=== PATIENT | female | born 1980 | race Hispanic/Latino ===

== ENCOUNTER 2019-09-09 14:12 | Outpatient (CLI) | payer BC ==
--- NOTE | 2019-09-09 15:19 | CT ---
CT abdomen and pelvis with IV and oral contrast HISTORY: Abdominal pain. COMPARISON: 12/18/2013. FINDINGS: The lung bases are clear. Gallbladder absent. Solid organs are intact. No hydronephrosis. No evidence of bowel obstruction or inflammation. Appendix is unremarkable. Fat protruding into an umbilical hernia has decreased significantly since the prior study. No free air or free fluid. Urinary bladder is decompressed. Intrauterine contraceptive device in place. IMPRESSION : Umbilical hernia significantly smaller than on the previous exam. Possibly interval surgical repair. No acute abnormalities are demonstrated.
== END 2019-09-09 14:13 | disposition home or self-care (01) ==
LOC: SCSCT 14:12
PROVIDERS: ATTEND Student in an Organized Health Care Education/Training Program
DX: R10.9 Unspecified abdominal pain (principal); K42.9 Umbilical hernia without obstruction or gangrene
CPT/HCPCS: 74177

== ENCOUNTER 2019-11-22 05:33 | Day surgery (SDC) | payer BC ==
[2019-11-16 12:35] VITALS: BMI 33.7
[2019-11-22] MEDS ORDERED: Fentanyl 250 MCG/5 ML VIAL ONE (06:12)
[2019-11-22] MEDS ORDERED: SUGAMMADEX SODIUM 500 MG/5 ML VIAL ONE (06:12)
[2019-11-22] MEDS ORDERED: Famotidine/PF 20 mg/2ml Vial ONE ×2 (06:12→06:15)
[2019-11-22] MEDS ORDERED: CeleCOXIB 100 MG CAP ONE (06:15)
[2019-11-22] MEDS ORDERED: Gabapentin 300 MG CAP ONE (06:15)
[2019-11-22 06:30] LABS: #Basophils 0.1 thou/uL (0.0-0.2); #Eosinphils 0.1 thou/uL (0.0-0.7); #Lymphocytes 2.6 thou/uL (1.20-3.40); #Monocytes 0.6 thou/uL (0.11-0.59); #Neutrophils 4.9 thou/uL (1.40-6.50); %Basophils 0.6 % (0.0-1.0); %Eosinophils 1.3 % (0.0-10.0); %Lymphocytes 31.4 % (21.0-51.0); %Neutrophils 59.7 % (42.0-75.0); Hemoglobin 13.3 g/dL (12.0-16.0); Mean Corpuscular HGB CONC 32.4 g/dL (32.0-36.0); Mean Corpuscular Hemoglobin 30.3 pg (27.0-31.0); Mean Corpuscular Volume 93.4 fL (78.0-98.0); Mean Platelet Volume 9.4 fL (7.4-10.4); Platelet Count 205 thou/uL (130-400); RBC Distribution Width 11.8 % (11.5-14.5); Red Blood Cell (RBC) Count 4.39 mill/uL (4.20-5.40); White Blood Cell (WBC) Count 8.3 thou/uL (4.8-10.8)
[2019-11-22 06:34] LABS: BHCG - Serum Negative (NEGATIVE); Pregs Control Background? CLEAR/WHITE (CLR/WHITE); Pregs Control Bar Appear? YES (CONTROL BAR)
[2019-11-22] MEDS ORDERED: Lidocaine 1% w/Epinephrine 1:100K 20 ML VIAL ONE (06:37)
[2019-11-22] MEDS ORDERED: Bupivacaine PF 0.5% 30 ML VIAL ONE (06:37)
[2019-11-22 07:14] LABS: Anion Gap 11 mmol/L (10-20); BUN (Urea Nitrogen) 7 mg/dL (7.0-18.7); Calc. Creatinine Clearance 188 mL/min (70-130); Calcium 8.4 mg/dL (7.8-10.44); Carbon Dioxide 22 mmol/L (22-29); Chloride 109 mmol/L (98-107); Estimated GFR-MDRD Greater than 90; Glucose 90 mg/dL (70-105); Potassium 3.6 mmol/L (3.5-5.1); Sodium 138 mmol/L (136-145)
[2019-11-22] MEDS ORDERED: Midazolam HCl 2 mg/2 ml Vial ONE (07:22)
[2019-11-22] MEDS ORDERED: Meperidine HCl/PF 25 MG/ML VIAL SLOW IVP PRN (10:12)
[2019-11-22] MEDS ORDERED: Ondansetron HCl/PF 4 MG/2 ML Vial IVP PRN (10:12)
[2019-11-22] MEDS ORDERED: Promethazine HCl 25 MG/ML VIAL IM PRN ×2 (10:12→10:13)
[2019-11-22] MEDS ORDERED: Promethazine HCl 25 MG/ML VIAL SLOW IVP PRN (10:12)
[2019-11-22] MEDS ORDERED: Ketorolac Tromethamine 30 MG/ML VIAL IVP PRN (10:12)
[2019-11-22] MEDS ORDERED: diphenhydrAMINE 25 MG CAP PO PRN (10:13)
[2019-11-22] MEDS ORDERED: Ondansetron PF 4 MG/2 ML Vial IVP PRN (10:13)
[2019-11-22] MEDS ORDERED: HYDROcodone/Acetaminophen 5/325 mg Tablet PO PRN (10:13)
[2019-11-22] MEDS ORDERED: Fentanyl 100 MCG/2 ML VIAL SLOW IVP PRN (10:13)
[2019-11-22] MEDS ORDERED: traMADol HCl 50 MG TAB PO PRN (10:13)
[2019-11-22] MEDS ORDERED: Zolpidem Tartrate 5 MG TAB PO PRN (10:13)
[2019-11-22] MEDS ORDERED: Bisacodyl 10 MG SUPP PR PRN (10:13)
[2019-11-22] MEDS ORDERED: Lidocaine 1% PF 5 ML VIAL ONE (10:17)
[2019-11-22] MEDS ORDERED: PROPOFOL 200 MG/20 ML VIAL ONE (10:17)
[2019-11-22] MEDS ORDERED: PHENYLEPHRINE-NS 100 MCG/ML 10 ML SYRINGE ONE (10:17)
[2019-11-22] MEDS ORDERED: Metoclopramide HCl 10 MG/2 ML VIAL ONE (10:17)
[2019-11-22] MEDS ORDERED: EPHEDRINE 25 MG/5 ML SYRINGE ONE (10:17)
[2019-11-22] MEDS ORDERED: Ondansetron PF 4 MG/2 ML Vial ONE (10:17)
[2019-11-22] MEDS ORDERED: Dexamethasone 20 MG/5 ML VIAL ONE (10:17)
--- NOTE | 2019-11-22 10:25 | OP ---
DATE OF PROCEDURE: 11/22/2019 PREOPERATIVE DIAGNOSIS: Incisional hernia/umbilical hernia. POSTOPERATIVE DIAGNOSIS: Incisional hernia/umbilical hernia. PROCEDURE PERFORMED: Incisional hernia repair primarily without mesh. ANESTHESIA: General. ESTIMATED BLOOD LOSS: Minimal. COMPLICATIONS: None. SPECIMEN: None. FINDINGS: Hysterectomy performed by Dr. Meyer. DESCRIPTION OF PROCEDURE: The patient already had laparoscopic ports placed. She had taken down some adhesions in the area of previous umbilical hernia repair. There was a small defect. A camera port was placed in the area of the umbilicus. After she was finished with her part of the procedure, all ports were removed under camera visualization without bleeding and pneumoperitoneum was let down. Maxon was used to close the fascial defect at the umbilicus, 2 interrupted sutures. No mesh was placed due to the clean contaminated nature of the procedure. The wounds were all irrigated and closed using 4-0 Monocryl and Dermabond. The patient was sent to Recovery in stable condition. All instrument counts, needle counts, and lap counts were correct. Job ID: [id number] [facility]
[2019-11-22] MEDS ORDERED: Fentanyl 100 MCG/2 ML VIAL ONE (10:57)
[2019-11-22] MEDS: Ketorolac Tromethamine 30 MG/ML VIAL IVP SCH ×2 (17:09→18:29)
[2019-11-22] MEDS: Sodium Chloride 0.9% 1,000 ML IV SCH ×2 (18:30)
[2019-11-22] MEDS: Simethicone Chewable 80 MG TAB PO PRN (21:24)
[2019-11-22] MEDS: HYDROcodone/Acetaminophen 5/325 mg Tablet PO PRN (21:25)
[2019-11-23] MEDS: Ketorolac Tromethamine 30 MG/ML VIAL IVP SCH (01:19)
[2019-11-23 05:22] LABS: Hemoglobin 12.3 g/dL (12.0-16.0); Mean Corpuscular HGB CONC 32.7 g/dL (32.0-36.0); Mean Corpuscular Hemoglobin 31.7 pg (27.0-31.0); Mean Corpuscular Volume 96.9 fL (78.0-98.0); Mean Platelet Volume 9.2 fL (7.4-10.4); Platelet Count 172 thou/uL (130-400); RBC Distribution Width 11.9 % (11.5-14.5); Red Blood Cell (RBC) Count 3.89 mill/uL (4.20-5.40); White Blood Cell (WBC) Count 16.2 thou/uL (4.8-10.8)
[2019-11-23] MEDS: Sodium Chloride 0.9% 1,000 ML IV SCH (05:25)
[2019-11-23] MEDS ORDERED: Ibuprofen 800 MG TAB PO SCH (06:00)
[2019-11-23] MEDS: Simethicone Chewable 80 MG TAB PO PRN (06:42)
[2019-11-23] MEDS: HYDROcodone/Acetaminophen 5/325 mg Tablet PO PRN ×2 (06:42→11:11)
[2019-11-23] MEDS ORDERED: Lisinopril 5 MG TAB PO SCH (09:00)
[2019-11-23] MEDS ORDERED: Non-Formulary Item 1 EACH (Multivitamin [Multivitamins] 1 CAP) PO SCH (09:00)
[2019-11-23] MEDS ORDERED: Hydrochlorothiazide 25 MG TAB PO SCH (09:00)
[2019-11-23] MEDS ORDERED: Multivit, Therapeutic 1 TAB PO SCH (09:00)
--- NOTE | 2019-11-23 11:44 | PDOC.EVN ---
Event Note - Event Note Event Note: POD1 S: Cramping pain, controlled with pain meds. Denies flatus, amish reg diet. Voiding. Has not ambulated in hallway. O: VSSAF NAD Unlabored breathing soft/ND/appttp/inc c/d/i No edema Hgb 12.3 A) POD1 s/p RATLH RSO, MUS, IH repair, cysto P) Met appropriate milestones, passed VT this am, will allow patient to void and bladder scan for PVR to ensure no retention. Ambulate in hallway. Cont po pain meds. DC home after second void.
[2019-11-23 12:08] VITALS: BP 132/88; TEMP 98.6
--- NOTE | 2019-11-24 12:54 | OP ---
DATE OF PROCEDURE: 11/22/2019 PREOPERATIVE DIAGNOSES: 1. Menorrhagia. 2. Pelvic pain. 3. Stress urinary incontinence. POSTOPERATIVE DIAGNOSES: 1. Menorrhagia. 2. Pelvic pain. 3. Stress urinary incontinence. 4. Endometriosis. PROCEDURES PERFORMED: Robotic-assisted total laparoscopic hysterectomy, right salpingo-oophorectomy, left salpingectomy, lysis of adhesion, tension-free vaginal sling, cystoscopy, and intrauterine device removal. ANESTHESIA: General endotracheal. Attending surgeon, Alexia Meyer MD, joint procedure with Dr. Hammonds. PLANT SAFETY ENGINEER SURGEON: Marbella Rhodes PA-C ESTIMATED BLOOD LOSS: 75 mL. IVF: 1800 mL crystalloid. URINE OUTPUT: 470 mL clear urine. PATHOLOGY: Uterus, cervix, right ovary, and bilateral fallopian tubes. COMPLICATIONS: None. DRAINS: Kwok catheter. FINDINGS: An 11 cm uterus. ParaGard IUD in place, that was removed without difficulty. There was a multi-cystic right ovary with the appearance of endometriosis on it. There was a normal left ovary. Normal bilateral fallopian tubes. There were omental adhesions to the anterior abdominal wall, the umbilicus, and omental containing umbilical hernia/incisional hernia present, Dr. Hammonds repaired at the conclusion of the procedure. There were scattered red and black endometriotic implants in the cul-de-sac, and right pelvic sidewall. The ureters and bladder were visualized and noted to appear intact without any inadvertent injury. On cystoscopy, there was no entry of sling into the bladder. There was no bladder injury during the case. There were no bladder masses or lesions. Vigorous ureteral efflux was noted bilaterally from the ureters on cysto. Excellent hemostasis at the conclusion of the procedure. DESCRIPTION OF PROCEDURE: The patient was taken to the operating room, where general anesthesia was obtained without difficulty. The patient was prepped and draped in a sterile fashion in dorsal lithotomy position. A Kwok catheter was placed in the bladder. Speculum was placed in the vagina. The anterior lip of the cervix grasped with a single-tooth tenaculum. Uterus then sounded to 11 cm and the cervix was progressively dilated with Arnold dilators. The DIPAK manipulator was assembled with a 4 cm ring and a 10 cm tip. The DIPAK manipulator was inserted into the uterus and the ring was advanced to fit snugly around the cervix. Balloons were inflated. The speculum and tenaculum were removed out of the vagina. Legs were placed in low lithotomy. Attention was turned to the abdomen. Anesthetic mixture of 0.25% Marcaine with epinephrine and 1% lidocaine plain was infiltrated into the umbilicus in the superior aspect and a 12 mm skin incision was made. The Veress needle was passed into the abdomen initially and pressures were high. It was removed and replaced. The pressures were noted to be at 2 mmHg and pneumoperitoneum was obtained without difficulty. The 12 mm trocar and sleeve were advanced into the abdomen and confirmed placement with robotic camera. At that time, it was noted that the trocar was within a curtain of omental adhesion to the anterior abdominal wall and the umbilical and contained in within the incisional hernia of the mesh was visualized. This was able to be scooped out of the way with the camera in order to place the port. The right and left lower quadrant 8 mm robotic trocars were placed under direct visualization after infiltrating with anesthetic and making a skin incision. A right upper quadrant 11 mm port was also placed under direct visualization after infiltrating with anesthetic for an phlebotomy lab assistant port. At that time, a 5 mm camera was called for in order to visualize the adhesions and take those down as this would have made the robotic portion of the surgery difficult to visualize secondary to the omentum hanging right directly in front of the surgical field. A 5 mm camera was placed into the right upper quadrant port and the omental adhesions were visualized. The Endo Yaniv was used to incise the omentum. There was no bowel contained in the segment, it was very filmy and then cautery was performed while incising the omentum at the anterior abdominal wall. While holding traction by the phlebotomy lab assistant with the blunt grasper, there was one portion that started bleeding and arterial source was incised and the cautery was not able to achieve hemostasis. Therefore, a clip was used to place above and below the arterial source with excellent hemostasis. The incised omentum was then visualized in the abdomen. Once that had been taken down and hemostasis was noted to be excellent. At that time, the robot was then docked and steep Trendelenburg was obtained. Right and left lower quadrant robotic trocars were placed with a monopolar scissors in the right arm and a fenestrated bipolar in left arm. The surgeon console then took control, the above findings were noted. The left fallopian tube was grasped and elevated and the mesosalpinx was sequentially cauterized with the fenestrated and incised with the scissors until the medial portion was met and tube was clamped across, cauterized, and incised and removed out of the abdomen. The utero-ovarian on the left side was cauterized and incised multiple times and this was taken down to the round ligament that was cauterized in the midportion with the fenestrated and incised, and hemostasis was achieved with the fenestrated. Anterior and posterior leaves of broad ligament were incised. The posterior leaf of the broad ligament was incised down to the level of the uterosacral ligament. The retroperitoneum was then dissected off the uterine vessels with bluntly pushing and spreading as well as cauterizing small vessels that were feeding into the side of the uterus. The vessels were very large and engorged on this patient and it was felt that she likely had adenomyosis. The ureter on the left side was visualized running in the pelvic sidewall directly after bluntly dissecting away the retroperitoneum from the ureter. It was noted where it crossed underneath the uterine vessel. The anterior lip of the broad ligament was incised down to the vesicouterine peritoneum and thus the vesicouterine peritoneum was then tented up with a fenestrated undermining and then incising. Once a clear window had been identified, the adventitial fibers of the peritoneum was then dissected off by tenting up on that peritoneum and incising the hazy fibers. At that time, attention was turned to the right side. The endometriosis in the cul-de-sac had already been identified. The pelvic sidewall on the right side also noted to have some adhesions of the right ovary to the pelvic sidewall with implants present along the usual line of the ureter. At that time, the right ovary was determined that it had endometriotic implants appearing on it and decision was made to remove that ovary. The right fallopian tube was grasped and elevated. The infundibulopelvic ligament was cauterized multiple times after identifying the ureter running medially at the pelvic brim. The IP was then incised and the mesovarium was also incised down to the round ligament that was cauterized in the midportion and incised. The posterior leaf of the broad ligament was incised as well, identifying the ureter and the uterine vessels were skeletonized on the right side, achieving hemostasis with the fenestrated. The anterior lip of the broad ligament was also incised with the scissors on cautery and adequate skeletonization was then fully performed. The vessels were cauterized bilaterally. The bladder flap was further developed by using a scoring technique on the pubocervical fascia and blunt dissection down below the level of the colpotomizer ring with the back end of the scissors. Once the vessels had been secured with the fenestrated incision with the colpotomy was performed. Further hemostasis was achieved by slipping the fenestrated underneath the lateral apices of the vaginal cuff and using cautery to achieve hemostasis at the edges. Colpotomy was then completed and the uterus was placed into the vagina as a means to maintain pneumoperitoneum. Hemostasis was achieved of the vaginal cuff with fenestrated. The scissors were traded out for the needle lease purchase driver. The vaginal cuff was then closed with a 2-0 STRATAFIX or barbed suture in a running fashion around back for a second layer. Hemostasis was noted. Copious irrigation was performed of the pelvis and low pressure check was performed. Hemostasis was noted to be excellent. At that point, the robot was then docked and pneumoperitoneum was released. Dr. Hammonds was called in to repair the umbilical hernia and attention was turned to the vagina. Legs were again placed in lithotomy and a weighted speculum was placed in the vagina. The mid urethra was grasped with 2 Allis's and infiltrated with the anesthetic mixture of 0.25% Marcaine with epinephrine and 1% lidocaine plain. Incision was made over the mid urethra approximately 3 cm in length with a blade. The Metzenbaums were used to dissect out the suburethral space as well as the space below the pubic bone, where the TVT sling would be placed bilaterally. Marking pen was used to faustino on the suprapubic space, where the sling should exit. Approximately 60 mL of sterile saline were used to hydrodissect that retropubic space to increase the distance from that space to the bladder bilaterally. A Kwok guidewire was placed into the Kwok catheter and the bladder was deviated over to the right side. The sling was then open and assembled on the needle lease purchase driver and the sling was placed on the right side initially. There was difficulty identifying the exit site of the trocar initially secondary to the patient's pannus; however, this careful guiding of the trocar just below the pubic bone as well as in the retropubic space hugging the pubic bone. The trocar exited in the appropriate site and the sling was fastened at the suprapubic space. The same procedure was performed on the right. There was no difficulty placing the side of the sling and it exited at the appropriate site. This was fastened at the abdominal wall in the suprapubic space. The Kwok catheter was then removed and the 70 degree cystoscope was assembled and placed into the bladder. The bladder was filled appropriately and no bladder injury had been noted from the hysterectomy. The sling sites were examined thoroughly. There was no blue material within the bladder and no laceration to the bladder from the sling. There were no masses or lesions or abnormalities noted. The ureters were visualized bilaterally effluxing vigorously and the cystoscope was removed and the Kwok catheter was placed and the bladder was drained. The sling was then tightened using the scissors to place between the mesh and the urethra in order to not overtighten the sling. The plastic covering of the mesh was removed from the abdominal wall by my phlebotomy lab assistant, and the sling was appropriately tightened and careful attention was taken not to overtighten the sling. At that time, the area was irrigated and the vaginal mucosa was closed with a 2-0 Vicryl in a running fashion with excellent hemostasis. The vagina was then packed with a moist Kerlix and all instruments removed out of the vagina. The Kwok catheter will be maintained until the patient has a voiding trial. The patient tolerated the procedure well. Sponge, lap, and needle counts correct x2. The patient was taken to recovery room in stable condition. The patient received Ancef 2 g prior to the procedure. Job ID: [id number]
== END 2019-11-23 13:40 | disposition home or self-care (01) ==
LOC: SDC 05:33 → 3SW 13:12 → SDC 11-23 13:40
PROVIDERS: ATTEND Student in an Organized Health Care Education/Training Program
PROC: 0UT04ZZ Resection of Right Ovary, Percutaneous Endoscopic Approach (ICD-10-PCS; principal; 2019-11-22)
PROC: 0WQF0ZZ Repair Abdominal Wall, Open Approach (ICD-10-PCS; principal; 2019-11-22)
PROC: 0TSD0ZZ Reposition Urethra, Open Approach (ICD-10-PCS; principal; 2019-11-22)
PROC: 0UT74ZZ Resection of Bilateral Fallopian Tubes, Percutaneous Endoscopic Approach (ICD-10-PCS; principal; 2019-11-22)
PROC: 0UT94ZZ Resection of Uterus, Percutaneous Endoscopic Approach (ICD-10-PCS; principal; 2019-11-22)
DX: N87.9 Dysplasia of cervix uteri, unspecified (principal); N80.0 Endometriosis of uterus; N85.8 Other specified noninflammatory disorders of uterus; N80.1 Endometriosis of ovary; N80.2 Endometriosis of fallopian tube; N83.8 Other noninflammatory disorders of ovary, fallopian tube and broad ligament; K42.9 Umbilical hernia without obstruction or gangrene; N39.3 Stress incontinence (female) (male); K21.9 Gastro-esophageal reflux disease without esophagitis; I10 Essential (primary) hypertension; G43.909 Migraine, unspecified, not intractable, without status migrainosus; E66.9 Obesity, unspecified; Z68.33 Body mass index [BMI] 33.0-33.9, adult; Z79.899 Other long term (current) drug therapy
CPT/HCPCS: 36415; 80048; 84703; 85025; 85027; 86850; 86900; 86901; 88307; 93005; 93010; C1781; J0690; J1100; J1885; J2250; J2405; J2704; J2765; J3010; S0020; S0028

== ENCOUNTER 2020-03-02 06:13 | Outpatient (CLI) | payer BC ==
[2020-03-02 17:40] LABS: SARS-CoV-2 MS2 Positive; SARS-CoV-2 N Gene Negative; SARS-CoV-2 S Gene Negative; SARS-CoV-2 by NAA Not Detected (NotDetected); SARS-CoV-2 orf1ab Negative
== END 2020-03-02 06:14 | disposition home or self-care (01) ==
LOC: LABBT 06:13
PROVIDERS: ATTEND Surgery
DX: K43.2 Incisional hernia without obstruction or gangrene (principal); Z20.828 Contact with and (suspected) exposure to other viral communicable diseases
CPT/HCPCS: 87635; U0003

== ENCOUNTER 2020-03-07 06:00 | Day surgery (SDC) | payer BC ==
[2020-03-06 11:50] VITALS: BMI 31.0
[2020-03-07] MEDS ORDERED: Lidocaine 1% w/Epinephrine 1:100K 20 ML VIAL ONE (06:36)
[2020-03-07] MEDS ORDERED: Bupivacaine 0.25% HCL 30 ML VIAL ONE (06:36)
[2020-03-07] MEDS ORDERED: Midazolam HCl 2 mg/2 ml Vial ONE (06:49)
[2020-03-07] MEDS ORDERED: Fentanyl 250 MCG/5 ML VIAL ONE (06:59)
[2020-03-07] MEDS ORDERED: Glycopyrrolate 0.2 MG/ML 5 ML SYRINGE ONE (08:54)
[2020-03-07] MEDS ORDERED: Dexamethasone 20 MG/5 ML VIAL ONE (08:54)
[2020-03-07] MEDS ORDERED: Lidocaine 1% PF 5 ML VIAL ONE (08:54)
[2020-03-07] MEDS ORDERED: Ondansetron PF 4 MG/2 ML Vial ONE (08:54)
[2020-03-07] MEDS ORDERED: PROPOFOL 200 MG/20 ML VIAL ONE (08:54)
[2020-03-07] MEDS ORDERED: Rocuronium Bromide 10 MG/ML (10ML VIAL) ONE (08:54)
[2020-03-07] MEDS ORDERED: Fentanyl 100 MCG/2 ML VIAL ONE (08:59)
[2020-03-07] MEDS ORDERED: Meperidine HCl/PF 25 MG/ML VIAL ONE (09:07)
[2020-03-07] MEDS ORDERED: HYDROcodone/Acetaminophen 5/325 mg Tablet ONE (10:11)
--- NOTE | 2020-03-07 17:08 | OP ---
DATE OF PROCEDURE: 03/07/2020 PREOPERATIVE DIAGNOSIS: Incisional hernia. POSTOPERATIVE DIAGNOSIS: Incisional hernia. PROCEDURE PERFORMED: Da Emerald laparoscopic incisional hernia repair with mesh, [address] ANESTHESIA: General. ESTIMATED BLOOD LOSS: Minimal. COMPLICATIONS: None. FINDINGS: Incisional hernia near umbilicus. TECHNIQUE: The patient was taken to the operating room and laid supine on the operating room table. After general anesthetic was obtained, a Kwok was placed as well as an OG tube. The abdomen was shaved, prepped, and draped in a sterile fashion. Left subcostal 5-mm Optiview trocar placed in usual fashion. High-flow pneumoperitoneum was obtained. Left and right abdominal subcostal 8-mm robot trocars were placed. The 5-mm port switched out to 11 mm balloon. The omentum into the incisional hernia was reduced. The posterior peritoneum was taken down exposing the posterior fascia. 0 V-Loc sutures used to close the defect primarily. The needle was cut, but left in the abdomen. 8-cm Ventralex ST mesh was cut, marked, and placed in the abdominal cavity. It was held up against the closed defect using the needle from the V-Loc. The exposed mesh was placed up against the posterior fascia, nonadherent was left down against the abdominal contents. This was sewn to the posterior fascia using 2-0 running V-Loc suture. All needles were removed from the abdomen and accounted for. Port sites were infiltrated using local anesthetic. All ports have removed under camera visualization. Pneumoperitoneum was let down. 4-0 Monocryl and Dermabond were used to close all skin incisions. The patient was sent to Recovery in stable condition. All instrument counts, needle counts, and lap counts were correct. Job ID: [id number]
== END 2020-03-07 10:50 | disposition home or self-care (01) ==
LOC: SDC 06:00
PROVIDERS: ATTEND Surgery
PROC: 0WUF4JZ Supplement Abdominal Wall with Synthetic Substitute, Percutaneous Endoscopic Approach (ICD-10-PCS; principal; 2020-03-07)
DX: K43.2 Incisional hernia without obstruction or gangrene (principal); I10 Essential (primary) hypertension; K21.9 Gastro-esophageal reflux disease without esophagitis; Z79.899 Other long term (current) drug therapy; Z91.048 Other nonmedicinal substance allergy status
CPT/HCPCS: C1781; J0690; J1100; J2175; J2250; J2405; J2704; J3010; S0020

== ENCOUNTER 2021-04-27 20:50 | Emergency (ER) | payer BC ==
[2021-04-27] MEDS ORDERED: Ketorolac Tromethamine 30 MG/ML VIAL ONE (22:14)
== END 2021-04-27 22:42 | disposition home or self-care (01) ==
LOC: ERS 20:50
DX: S93.401A Sprain of unspecified ligament of right ankle, initial encounter (principal); W10.8XXA Fall (on) (from) other stairs and steps, initial encounter
CPT/HCPCS: 96372; J1885

== ENCOUNTER 2022-07-29 12:24 | Outpatient (CLI) | payer BC ==
[2022-07-29] MEDS ORDERED: Lidocaine 1% PF 5 ML VIAL ONE (13:10)
[2022-07-29] MEDS ORDERED: Gadobenate 529 MG/1 ML (20ML SDV) ONE (13:10)
[2022-07-29] MEDS ORDERED: EPINEPHrine 1 MG/ML AMP ONE (13:10)
[2022-07-29] MEDS ORDERED: Iopamidol 300 61% 100 ML VIAL FS ONE (13:10)
== END 2022-07-29 12:25 | disposition home or self-care (01) ==
LOC: RAD 12:24
PROVIDERS: ATTEND Orthopaedic Surgery
DX: M24.811 Other specific joint derangements of right shoulder, not elsewhere classified (principal); M75.121 Complete rotator cuff tear or rupture of right shoulder, not specified as traumatic; S46.211A Strain of muscle, fascia and tendon of other parts of biceps, right arm, initial encounter
CPT/HCPCS: 23350; A9577; J0171; J7050; Q9967

== ENCOUNTER 2022-08-15 06:39 | Day surgery (SDC) | payer BC ==
[2022-08-14 10:15] VITALS: BMI 34.3
[2022-08-15] MEDS ORDERED: Phenylephrine 10 MG/ML VIAL ONE (06:55)
[2022-08-15] MEDS ORDERED: EPINEPHrine 1 MG/ML AMP ONE (07:07)
[2022-08-15] MEDS ORDERED: Lidocaine 1% (PF) 30 ML VIAL ONE ×2 (07:07→07:56)
[2022-08-15] MEDS ORDERED: fentaNYL 50 mcg/mL 1 mL Vial ONE (07:24)
[2022-08-15] MEDS ORDERED: Midazolam HCl 2 mg/2 ml Vial ONE (07:24)
[2022-08-15 07:29] LABS: #Eosinphils 0.2 thou/uL (0.0-0.7); #Lymphocytes 2.9 thou/uL (1.20-3.40); #Monocytes 0.7 thou/uL (0.11-0.59); #Neutrophils 5.3 thou/uL (1.40-6.50); %Basophils 0.5 % (0.0-1.0); %Eosinophils 1.8 % (0.0-10.0); %Lymphocytes 31.7 % (21.0-51.0); %Monocytes 7.9 % (0.0-10.0); %Neutrophils 58.1 % (42.0-75.0); Hemoglobin 14.9 g/dL (12.0-16.0); Mean Corpuscular HGB CONC 33.7 g/dL (32.0-36.0); Mean Corpuscular Hemoglobin 32.1 pg (27.0-31.0); Mean Corpuscular Volume 95.3 fl (78.0-98.0); Mean Platelet Volume 8.6 fL (7.4-10.4); Platelet Count 199 10x3/uL (130-400); RBC Distribution Width 11.8 % (11.5-14.5); Red Blood Cell (RBC) Count 4.64 mill/uL (4.20-5.40); White Blood Cell (WBC) Count 9.1 10x3/uL (4.8-10.8)
[2022-08-15] MEDS ORDERED: CEFAZOLIN 2 GM VIAL ONE (07:30)
[2022-08-15] MEDS ORDERED: Sodium Chloride 0.9% 100 ML ONE (07:30)
[2022-08-15] MEDS ORDERED: fentaNYL PF 100 MCG/2 ML SYRINGE ONE (07:49)
[2022-08-15] MEDS ORDERED: Ropivacaine 0.2% HCl/PF 20 ML ONE (07:56)
[2022-08-15] MEDS ORDERED: Ropivacaine 0.5% HCl/PF (150 MG/30 ML VIAL) ONE (07:56)
[2022-08-15] MEDS ORDERED: Dexamethasone 20 MG/5 ML VIAL ONE (08:00)
[2022-08-15] MEDS ORDERED: Ropivacaine 0.2% 550 ML 550 ML NERVE BLCK SCH (08:00)
[2022-08-15] MEDS ORDERED: GLYCOPYRROLATE/PF 0.2 MG/ML VIAL ONE (08:00)
[2022-08-15] MEDS ORDERED: Zolpidem Tartrate 5 MG TAB PO PRN (08:00)
[2022-08-15] MEDS ORDERED: HYDROcodone/Acetaminophen 10/325 mg Tablet PO PRN ×2 (08:00)
[2022-08-15] MEDS ORDERED: Rocuronium Bromide 10 MG/ML (10ML VIAL) ONE (08:00)
[2022-08-15] MEDS ORDERED: NEOSTIGMINE 3 MG/3 ML SYR 3 MG/3 ML SYRINGE ONE (08:00)
[2022-08-15] MEDS ORDERED: PROPOFOL 200 MG/20 ML VIAL ONE (08:00)
[2022-08-15] MEDS ORDERED: Promethazine HCl 25 MG/ML VIAL IM PRN (08:00)
[2022-08-15] MEDS ORDERED: Ondansetron PF 4 MG/2 ML Vial IVP PRN (08:00)
[2022-08-15] MEDS ORDERED: Lidocaine 1% PF 5 ML VIAL ONE (08:00)
[2022-08-15] MEDS ORDERED: Ondansetron PF 4 MG/2 ML Vial ONE (08:00)
[2022-08-15] MEDS ORDERED: traMADol HCl 50 MG TAB PO PRN ×2 (08:00)
[2022-08-15] MEDS ORDERED: Ketorolac Tromethamine 30 MG/ML VIAL ONE (10:44)
[2022-08-15] MEDS ORDERED: Ketorolac Tromethamine 30 MG/ML VIAL IVP SCH (12:00)
== END 2022-08-15 11:55 | disposition home or self-care (01) ==
LOC: SDC 06:39
PROVIDERS: ATTEND Orthopaedic Surgery
PROC: 0LS30ZZ Reposition Right Upper Arm Tendon, Open Approach (ICD-10-PCS; principal; 2022-08-15)
PROC: 0LM14ZZ Reattachment of Right Shoulder Tendon, Percutaneous Endoscopic Approach (ICD-10-PCS; principal; 2022-08-15)
PROC: 0RNJ4ZZ Release Right Shoulder Joint, Percutaneous Endoscopic Approach (ICD-10-PCS; principal; 2022-08-15)
PROC: 0RHJ04Z Insertion of Internal Fixation Device into Right Shoulder Joint, Open Approach (ICD-10-PCS; principal; 2022-08-15)
DX: M75.121 Complete rotator cuff tear or rupture of right shoulder, not specified as traumatic (principal); M25.811 Other specified joint disorders, right shoulder; S46.211A Strain of muscle, fascia and tendon of other parts of biceps, right arm, initial encounter; I10 Essential (primary) hypertension; Z79.85 Long-term (current) use of injectable non-insulin antidiabetic drugs; Z79.899 Other long term (current) drug therapy; Z91.048 Other nonmedicinal substance allergy status
CPT/HCPCS: 85025; A4306; C1713; J0171; J1100; J1885; J2001; J2250; J2370; J2405; J2704; J2795; J3010; J3490